=== PATIENT | female | born 1990 | race Caucasian/White ===

== ENCOUNTER 2017-11-16 18:43 | Emergency (ER) | payer BC ==
[~2017-11-16] VITALS: Ht 160 cm; Wt 63.6 kg
[2017-11-16 19:01] VITALS: BP 129/90; TEMP 98.6
[2017-11-16] MEDS ORDERED: NORCO 325 MG-51 TAB PO (19:17)
[2017-11-16] MEDS ORDERED: ZOLOFT 100MG100 MG PO (19:29)
[2017-11-16] MEDS ORDERED: BUSPAR5 MG PO (19:29)
[2017-11-16] MEDS ORDERED: MIRENA52 MG IY (19:30)
[2017-11-16 20:07] VITALS: PULSE 79
== END 2017-11-16 20:08 | disposition home or self-care (01) ==
LOC: COL.ER 18:43
DX: R10.32 Left lower quadrant pain (principal)

== ENCOUNTER 2018-10-27 15:14 | Emergency (ER) | payer BC ==
[~2018-10-27] VITALS: Ht 157.5 cm; Wt 62.7 kg
[~2018-10-27 15:14] MED LIST: BUSPAR5 MG PO; MIRENA52 MG IY; NORCO 325 MG-51 TAB PO; ZOLOFT 100MG100 MG PO
[2018-10-27 15:21] VITALS: TEMP 98
[2018-10-27 15:52] LABS: COLLECTION METHOD CLEAN CATCH
[2018-10-27 16:18] LABS: BASO % 0.4 % (0.0-2.0); EOS # 0.2 (0.0-0.7); EOS % 3.4 % (0-4.0); GRAN # 3.3 (1.4-6.5); GRAN % 47.1 % (42.2-75.2); HEMATOCRIT 39.5 % (37.0-47.0); HEMOGLOBIN 13.1 g/dl (12.5-16.0); LYMPH % 42.4 % (20.0-51.0); MEAN CELL VOLUME 93 fl (80.0-100.0); MEAN CORPUSCULAR HEMOGLOBIN 31 pg (27.0-31.0); MEAN CORPUSCULAR HGB CONC 33 g/dl (33.0-37.0); MEAN PLATELET VOLUME 10.3 fl (7.4-10.4); MONO # 0.5 (0.1-0.6); MONO % 6.4 % (1.7-9.3); PLATELET COUNT 274 K/mm3 (130-400); RED BLOOD COUNT 4.23 M/mm3 (4.10-5.30); REDCELL DISTRIBUTION WIDTH-CV 12.4 % (11.5-14.5)
[2018-10-27] MEDS ORDERED: ZOFRAN ODT8 MG (16:19)
[2018-10-27] MEDS ORDERED: NORCO 325 MG-51 TAB (16:20)
[2018-10-27] MEDS ORDERED: KLONOPIN 1MG1 MG (16:20)
[2018-10-27] MEDS ORDERED: FE C (16:20)
[2018-10-27 16:29] LABS: ALBUMIN 4.6 gm/dL (3.5-5.0); BILIRUBIN,TOTAL 0.6 mg/dL (0.0-1.0); C-REACTIVE PROTEIN 0.6 mg/dL (0.0-0.9); CALCIUM 9.7 mg/dL (8.4-10.2); CREATININE, serum 0.94 mg/dL (0.52-1.25); TOTAL PROTEIN 8.1 gm/dL (6.4-8.2)
[2018-10-27 16:32] LABS: AMORPHOUS CRYSTAL Present /uL; PH 7 (5-8); SQUAMOUS EPITHELIAL None Seen /hpf; URINE APPEARANCE Cloudy; URINE BACTERIA None Seen /hpf; URINE BILIRUBIN Negative (NEGATIVE); URINE BLOOD Negative (NEGATIVE); URINE GLUCOSE Negative (NEGATIVE); URINE KETONE Negative (NEGATIVE); URINE LEUKOCYTE ESTERASE Negative (NEGATIVE); URINE NITRATE Negative (NEGATIVE); URINE PROTEIN(semi-quant) Negative (NEGATIVE); URINE RBC None Seen /hpf; URINE UROBILINOGEN Negative (NEGATIVE)
[2018-10-27 16:33] LABS: URINE COLOR Yellow
[2018-10-27 18:30] VITALS: BP 130/90; PULSE 90
== END 2018-10-27 18:30 | disposition home or self-care (01) ==
LOC: COL.ER 15:14
PROVIDERS: Family Medicine
DX: N80.9 Endometriosis, unspecified (principal)
CPT/HCPCS: J1885; J2060; J2270; J2405; J7030; Q9967